=== PATIENT | male | born 1950 | race African-American/Black ===

== ENCOUNTER 2017-05-11 09:23 | Emergency (ER) | payer OTHER ==
[~2017-05-11] VITALS: Ht 167.6 cm; Wt 75.3 kg
[2017-05-11 10:11] LABS: BASOPHIL % 0.6 % (0-2); PLATELET COUNT 177 x10^3mcL (130-400)
[2017-05-11 10:19] LABS: RED CELL DISTRIBUTION WIDTH 15.3 % (11.5-14.5)
[2017-05-11 10:25] LABS: CALCIUM 8.6 mg/dL (8.5-10.1); CARBON DIOXIDE 26.2 mmol/L (21-32); CHLORIDE SERUM 103 mmol/L (98-107); CREATININE SERUM 0.9 mg/dL (0.7-1.3); GFR1 > 60 mL/min; GLUCOSE SERUM 222 mg/dL (74-106); POTASSIUM SERUM 3.9 mmol/L (3.5-5.1); SODIUM SERUM 139 mmol/L (136-145)
[2017-05-11 11:03] LABS: UA SPECIFIC GRAVITY >=1.030 (1.005-1.035); microscopic required? YES
[2017-05-11 11:04] LABS: urine erythrocyte 3+ (NEGATIVE)
[2017-05-11 11:48] VITALS: BP 120/75
== END 2017-05-11 11:56 | disposition home or self-care (01) ==
LOC: ED 09:23
PROVIDERS: Emergency Medicine
DX: N39.0 Urinary tract infection, site not specified (principal); I10 Essential (primary) hypertension; E11.9 Type 2 diabetes mellitus without complications; Z79.84 Long term (current) use of oral hypoglycemic drugs; Z79.899 Other long term (current) drug therapy; Z85.46 Personal history of malignant neoplasm of prostate; Z88.1 Allergy status to other antibiotic agents; Z88.8 Allergy status to other drugs, medicaments and biological substances
CPT/HCPCS: 36415